=== PATIENT | male | born 1950 | race Caucasian/White ===

== ENCOUNTER 2019-01-15 01:39 | Inpatient (IN) | payer MEDICARE, BC ==
[2019-01-15] MEDS ORDERED: NORMAL SALINE 1000 ML 1,000 ML IV ONE ×2 (02:01→03:16)
--- NOTE | 2019-01-15 02:06 | ER Document Report ---
ED General - General Chief Complaint: Fall Stated Complaint: FALL Time Seen by Provider: 01/15/19 01:51 Primary Care Provider: NAVID QUINTERO PA-C [Primary Care Provider] - Follow up as needed Notes: Patient is a 68-year-old male that comes emergency department by EMS for chief complaint of fall. Patient states that he fell twice today, he states that he has felt bad all day with chills and body aches, is also weaker than usual. He states that he second time he went down he scraped his knees and elbows, he sta jessica he crawled to the phone and called the EMS because he could not get up. He states he has not eaten anything all day. EMS gave him small amount of IV fluids after his systolic blood pressure was found to be 84 on arrival. He denies chest pain, fever, shortness of breath, abdominal pain. He states he felt nauseated earlier but he did not vomit. He denies headache or focal numbness/weakness. Past medical history includes type 2 diabetes, hypertension, and he recently had a prostate biopsy within the past week. He states he has a little bit of hematuria from this but no more than he was told to expect. He states he is also had a little bit of red blood with wiping intermittently but none noted in his stool. He is not on a blood thinner. - Related Data Allergies/Adverse Reactions: No Known Allergies Allergy (Unverified 01/15/19 01:51) Past Medical History - General Information source: Patient - Social History Smoking Status: Never Smoker Drug Abuse: None Lives with: Spouse/Significant other Family History: Reviewed & Not Pertinent Patient has suicidal ideation: No Patient has homicidal ideation: No - Past Medical History Cardiac Medical History: Reports: Hx Hypertension Endocrine Medical History: Reports: Hx Diabetes Mellitus Type 2 Renal/ Medical History: Reports: Hx Benign Prostatic Hyperplasia Musculoskeletal Medical History: Reports Hx Arthritis - Immunizations Immunizations up to date: Yes Hx Diphtheria, Pertussis, Tetanus Vaccination: Yes Review of Systems - Review of Systems Constitutional: No symptoms reported EENT: No symptoms reported Cardiovascular: No symptoms reported Respiratory: No symptoms reported Gastrointestinal: No symptoms reported Genitourinary: No symptoms reported Male Genitourinary: No symptoms reported Musculoskeletal: See HPI Skin: See HPI Hematologic/Lymphatic: No symptoms reported Neurological/Psychological: No symptoms reported Physical Exam - Vital signs Vitals: Resp Pulse Ox 20 98 01/15/19 01:46 01/15/19 01:46 - Notes Notes: GENERAL: Alert, interacts well. Patient is very dirty, there is dirt smeared on his face and over his limbs. HEAD: Normocephalic, atraumatic. EYES: Pupils equal, round, and reactive to light. Extraocular movements intact. ENT: Oral mucosa parched, tongue midline. Oropharynx unremarkable. Airway paten t. NECK: Full range of motion. Supple. Trachea midline. LUNGS: Clear to auscultation bilaterally, no wheezes, rales, or rhonchi. No respiratory distress. No signs of trauma, no tenderness. HEART: Tachycardia, normal rhythm, no murmur ABDOMEN: Soft, non-tender. Non-distended. EXTREMITIES: Moves all 4 extremities spontaneously. Abrasions and bruises to both knees and small abrasions over the tops of the feet. Abrasions to the elbows. Normal capillary refill and sensation, normal strength, normal range of motion of all extremities. There is some tenderness over the left hip area. BACK: No signs of trauma. No cervical, thoracic, lumbar midline tenderness. No saddle anesthesia, normal distal neurovascular exam. Moves all extremities in full range of motion. NEUROLOGICAL: Alert and oriented x3. Normal speech. Cranial nerves II through XII grossly intact. PSYCH: Normal affect, normal mood. SKIN: Warm, dry, normal turgor. No rashes or lesions noted. Course - Re-evaluation Re-evalutation: Patient initially tachycardic, he is very dirty on examination with dirt on his face and extremities, however he has a soft abdomen, clear lungs, no current complaints other than generalized weakness. CBC shows leukocytosis with elevation of neutrophils but no bandemia, nonspecific. Chest x-ray unremarkable, imaging of the extremities unremarkable without fracture. Chemistry shows hypokalemia at 2.3, magnesium pending. CK very elevated at 35,000+, troponin is also elevated at 2.3. Patient given magnesium, potassium. On reevaluation he still denies chest pain or shortness of breath. He denies any current complaints. He has been given 2 L of IV fluid bolus with about 1 hour in between. He states he urinated just prior to arrival and is attempting to give one now. I discussed with Dr. Renee, she recommends ASA and admission to the hospital for additional evaluation and treatment. 01/15/19 05:[address] Kuhn, he does recommend a CT of the chest before we proceed because of his elevated troponin and tachycardia. We are also still pending a urinalysis. Patient still denies chest pain or shortness of breath at this time. 01/15/19 Urinalysis showing some expected hematuria, nonspecific. CT was performed, no pulmonary embolism is seen, incidental thyroid nodules, moderate pericardial fluid, nonspecific otherwise. Patient becomes mildly hypoxic when he falls asleep, he is obese and appears to have sleep apnea, placed on 2 L because of this. Troponin is downtrending now at 1.5. Patient discussed one more time and he still denies dizziness, chest pain, shortness of breath. He did not pass out. I did discuss with Dr. Renee. Discussed with Dr. Arteaga, hospitalist, patient accepted to telemetry full admission. Patient states agreement with plan. - Vital Signs Vital signs: Temp Pulse Resp BP Pulse Ox 99.2 F 120 H 25 H 143/72 H 97 01/15/19 01:51 01/15/19 01:51 01/15/19 07:31 01/15/19 07:31 01/15/19 07:31 - Laboratory Result Diagrams: 01/15/19 02:35 01/15/19 02:35 Laboratory results interpreted by me: 01/15/19 01/15/19 01/15/19 02:35 02:35 02:35 WBC 12.9 H RBC 3.80 L Hgb 11.8 L Hct 34.7 L RDW 14.7 H Seg Neuts % (Manual) 91 H Band Neutrophils % 2 L Lymphocytes % (Manual) 2 L Abs Neuts (Manual) 12.0 H Abs Lymphs (Manual) 0.3 L VBG pCO2 Sodium 135.0 L Potassium 2.8 L* Carbon Dioxide 21 L Est GFR (MDRD) Non-Af 58 L POC Glucose Lactic Acid 2.6 H Calcium 7.7 L AST 719 H Creatine Kinase 18193 H Total Protein 6.2 L Albumin 3.1 L Urine Protein Urine Ketones Urine Blood 01/15/19 01/15/19 01/15/19 02:35 02:38 05:39 WBC RBC Hgb Hct RDW Seg Neuts % (Manual) Band Neutrophils % Lymphocytes % (Manual) Abs Neuts (Manual) Abs Lymphs (Manual) VBG pCO2 34.3 L Sodium Potassium Carbon Dioxide Est GFR (MDRD) Non-Af POC Glucose 120 H Lactic Acid Calcium AST Creatine Kinase Total Protein Albumin Urine Protein 100 H Urine Ketones TRACE H Urine Blood LARGE H - EKG Interpretation by Me Additional EKG results interpreted by me: EKG shows sinus tachycardia at a rate of 115, QTC of 415, normal axis. Low voltage throughout. No overt T wave inversions or ST segment changes in consecutive leads. Discharge - Discharge Clinical Impression: Hypokalemia, Weakness, Tachycardia, Elevated troponin Rhabdomyolysis Qualifiers: Rhabdomyolysis type: non-traumatic Qualified Code(s): M62.82 - Rhabdomyolysis Hypotension Qualifiers: Hypotension type: unspecified hypotension type Qualified Code(s): I95.9 - Hypotension, unspecified Condition: Stable Disposition: ADMITTED INPATIENT Admitting Provider: Dr. Arteaga Unit Admitted: Telemetry Referrals: NAVID QUINTERO PA-C [Primary Care Provider] - Follow up as needed
[2019-01-15 02:47] LABS: VENOUS BLOOD BASE EXCESS -3.5 mmol/L; VENOUS BLOOD HCO3 20.7 mmol/L (20-32); VENOUS BLOOD PCO2 34.3 mmHg (35-63); VENOUS BLOOD PH 7.4 (7.30-7.42)
[2019-01-15 02:51] LABS: HEMATOCRIT 34.7 % (37.9-51.0); HEMOGLOBIN 11.8 g/dL (13.5-17.0); MEAN CORPUSCULAR VOLUME 91 fl (80-97); PLATELET COUNT 210 10^3/uL (150-450); RED CELL DISTRIBUTION WIDTH 14.7 % (11.5-14.0); WHITE BLOOD COUNT 12.9 10^3/uL (4.0-10.5)
[2019-01-15 03:06] LABS: ALBUMIN 3.1 g/dL (3.5-5.0); ALKALINE PHOSPHATASE 89 U/L (38-126); ANION GAP 13 (5-19); ASPARTATE AMINO TRANSFERASE 719 U/L (17-59); BILIRUBIN,DIRECT 0.2 mg/dL (0.0-0.4); BILIRUBIN,TOTAL 1.2 mg/dL (0.2-1.3); BLOOD UREA NITROGEN 15 mg/dL (7-20); CALCIUM 7.7 mg/dL (8.4-10.2); CARBON DIOXIDE 21 mmol/L (22-30); CHLORIDE 101 mmol/L (98-107); GLUCOSE 109 mg/dL (75-110); TOTAL PROTEIN 6.2 g/dL (6.3-8.2)
[2019-01-15 03:12] LABS: ABSOLUTE LYMPHOCYTES# (MANUAL) 0.3 10^3/uL (0.5-4.7); ABSOLUTE MONOCYTES # (MANUAL) 0.6 10^3/uL (0.1-1.4); ANISOCYTOSIS SLIGHT; BAND NEUTROPHILS % (MANUAL) 2 % (3-5); BASOPHILS % (MANUAL) 0 % (0-2); EOSINOPHILS % (MANUAL) 0 % (0-6); LYMPHOCYTES % (MANUAL) 2 % (13-45); MONOCYTES % (MANUAL) 5 % (3-13); SEGMENTED NEUTROPHILS % (MAN) 91 % (42-78); TOTAL CELLS COUNTED 100
[2019-01-15 03:13] LABS: PLATELET COMMENT ADEQUATE
[2019-01-15] MEDS ORDERED: ONDANSETRON HCL INJ/PF 4 MG/2 ML SDV IV ONE (03:17)
--- NOTE | 2019-01-15 03:17 | RADIOLOGY REPORT (SQ) ---
EXAM DESCRIPTION: XR CHEST 1 VIEW COMPLETED DATE/TME: 01/15/2019 02:00 CLINICAL HISTORY: weakness, chills COMPARISON: None. FINDINGS: Single frontal view of the chest. Cardiomediastinal silhouette: Normal size and contour. Lungs: No consolidation, pneumothorax, or pleural effusion. Bones: No acute osseous abnormality. Leads overlie the chest. Upper abdomen: No abnormality identified. IMPRESSION: 1. No acute pulmonary process identified.
--- NOTE | 2019-01-15 03:18 | RADIOLOGY REPORT (SQ) ---
EXAM DESCRIPTION: XR HIP 2 OR MORE VIEWS COMPLETED DATE/TME: 01/15/2019 02:00 CLINICAL HISTORY: 68 years, Male, fall, pain COMPARISON: None. FINDINGS: Single view of the pelvis and lateral view of the left hip. No acute fracture identified. Bilateral hip joint space narrowing and marginal osteophytosis. Degenerative endplate spondylosis of visualized lumbar spine. IMPRESSION: 1. No acute fracture or dislocation. copyright 2010 [employer]- All Rights Reserved
--- NOTE | 2019-01-15 03:19 | RADIOLOGY REPORT (SQ) ---
Bilateral elbows two view on 01/15/2019 at 2:29 AM CLINICAL INDICATION: Bilateral elbow pain after fall COMPARISON: None FINDINGS: Right elbow: There are no fractures. Visualized joints are well aligned. Tiny olecranon spur is noted. No joint effusion to suggest an occult fracture is noted. Left elbow: Small spur formation is noted along the coronoid process of the proximal ulna and also involving the medial distal humeral epicondyle. There are no fractures. Visualized joints are well aligned. No joint effusion to suggest an occult fracture is noted. IMPRESSION: No acute abnormality in either elbow.
[2019-01-15 03:20] LABS: POTASSIUM 2.8 mmol/L (3.6-5.0)
--- NOTE | 2019-01-15 03:20 | RADIOLOGY REPORT (SQ) ---
Bilateral knees two view on 01/15/2019 at 2:21 AM CLINICAL INDICATION: Bilateral knee pain after fall COMPARISON: None FINDINGS: Left knee: Vascular calcifications are noted. No joint effusion is noted. There are no fractures. Visualized joints are well aligned. Right knee: No joint effusion is noted. There are no fractures. Visualized joints are well aligned. No bony abnormality is noted. IMPRESSION: No acute abnormality in either knee.
[2019-01-15] MEDS: POTASSI CL 20 MEQ/50 ML RIDER 20 MEQ/50 ML RTUPB IV SCH ×2 (03:53→05:46)
[2019-01-15] MEDS: MAGNESIUM SULFATE/D5W 1 GM/100 ML RTUPB IV SCH ×2 (03:54→04:54)
[2019-01-15] MEDS ORDERED: ASPIRIN 81 MG TABLET, CHEWABLE PO ONE (03:54)
[2019-01-15 04:04] LABS: CREATINE KINASE 35165 U/L (55-170)
[2019-01-15 06:30] LABS: APPEARANCE,URINE SLIGHTLY-CLOUDY; BILIRUBIN,URINE NEGATIVE (NEGATIVE); GLUCOSE, URINE NEGATIVE (NEGATIVE); KETONES,URINE TRACE mg/dL (NEGATIVE); LEUKOCYTE ESTERASE,URINE NEGATIVE (NEGATIVE); NITRITE,URINE NEGATIVE (NEGATIVE); PROTEIN,URINE 100 mg/dL (NEGATIVE); URINE SPECIFIC GRAVITY 1.009; UROBILINOGEN,URINE NEGATIVE mg/dL (<2.0)
[2019-01-15 06:31] LABS: COLOR,URINE DARK YELLOW
--- NOTE | 2019-01-15 06:45 | RADIOLOGY REPORT (SQ) ---
EXAM DESCRIPTION: CT CHEST ANGIOGRAPHY WITHOUT THEN WITH IV CONTRAST COMPLETED DATE/TME: 01/15/2019 04:58 CLINICAL HISTORY: 68 years Male, tachycardia, elevated troponin. CREAT 1.25 Comparison: CR, same day. Technique: IV contrast. Coronal and sagittal reformat. 3d reconstruction. This exam was performed according to our departmental dose-optimization program, which includes automated exposure control, adjustment of the mA and/or kV according to patient size and/or use of iterative reconstruction technique.[facility]: Dose Right [facility]: CareDose [facility]: Dose Right [facility]: Teradose 4D [facility]: [employer] LIMITATIONS: None Findings: Bilateral thyroid lesions measure 2.7 cm on the right and 2.2 cm on the left, partially imaged. Recommend thyroid ultrasound. Moderate pericardial fluid. Hepatic steatosis. No pulmonary embolus. No right ventricular strain. Clear lungs. Inferior neck, axillae, mediastinum, airway, lymphatics, heart, vasculature, upper abdomen, and musculoskeleton appear otherwise unremarkable. Impression: 1. Bilateral thyroid lesions measure 2.7 cm on the right and 2.2 cm on the left, partially imaged. Recommend thyroid ultrasound. 2. Moderate pericardial fluid. 3. Hepatic steatosis. 4. No pulmonary embolus. Clear lungs.
[2019-01-15] MEDS ORDERED: POTASSIUM CHLORIDE 10 MEQ CAPSULE.ER PO ONE ×2 (08:30→22:00)
[2019-01-15] MEDS ORDERED: ONDANSETRON HCL INJ/PF 4 MG/2 ML SDV IV PRN (09:53)
[2019-01-15] MEDS ORDERED: MAG HYDROX/AL HYDROX/SIMETH SUSP 30 ML UDCUP PO PRN (09:53)
[2019-01-15] MEDS ORDERED: GLUCAGON,HUMAN RECOMB 1 MG INJ IM PRN (10:00)
[2019-01-15] MEDS ORDERED: DEXTROSE 40% GEL 15 GM TUBE PO PRN ×2 (10:00)
[2019-01-15] MEDS ORDERED: DEXTROSE 50%-WATER 25 GM/50 ML DISP.SYRIN IV PRN ×2 (10:00)
[2019-01-15] MEDS ORDERED: DIAZEPAM 5 MG TABLET PO PRN (10:13)
[2019-01-15 10:49] LABS: FREE T4 (FREE THYROXINE) 1.24 ng/dL (0.78-2.19)
--- NOTE | 2019-01-15 10:50 | PDOC H&P ---
History of Present Illness Admission Date/PCP: 01/15/19 07:53 NAVID QUINTERO PA-C Patient complains of: Fall and muscle weakness History of Present Illness: LAUREL IZQUIERDO is a 68 year old male with a history of type 2 diabetes mellitus, hypertension, who was brought in by EMS after experiencing a fall at home. Patient lives with his girlfriend but was at home alone last night when he experienced 2 falls. Both falls occurred when he went to the bathroom and attempted to sit on the toilet bowl. Patient states he fell forward and broke the impact with his hands. He denies any head impact on either location. States that on both occasions, he did not experience any dizziness, lightheadedness or loss of consciousness. It was simply that his legs felt weak as he stooped down so he fell. Patient denies any muscle aches or muscle soreness. Patient states he has been feeling weak for quite some time but it got really bad yesterday. After fall patient was able to crawl to his room and got to the phone and called the ambulance. Patient states when the ambulance arrived they helped him up and put him in the stretcher and at the time his blood pressure was 87/57. He did not take his lisinopril yesterday. Of note patient endorses chronic diarrhea which happens about 4 to 5 days a week but got really bad yesterday and had over 6 bowel movements. He denies any recent antibiotic use in the past several months. Denies abdominal pain, weight loss, heat intolerance, fever or chills. Denies any shortness of breath no chest pain. Past Medical History Cardiac Medical History: Reports: Hypertension Denies: Congestive Heart Failure, Coronary Artery Disease, Myocardial Infarction, Pulmonary Embolism Pulmonary Medical History: Denies: Chronic Obstructive Pulmonary Disease (COPD), Sleep Apnea Endocrine Medical History: Reports: Diabetes Mellitus Type 2 Musculoskeltal Medical History: Reports: Arthritis Past Surgical History Past Surgical History: Reports: Other - Prostate biopsy Social History Lives with: Spouse/Significant other Smoking Status: Former Smoker Cigarettes Packs Per Day: 1 Number of Years Smokin Frequency of Alcohol Use: Rare Hx Recreational Drug Use: No Drugs: None - Advance Directive Resuscitation Status: Full Code Family History Family History: CAD, DM. denies: Thyroid Disfunction Parental Family History Reviewed: Yes Children Family History Reviewed: Yes Sibling(s) Family History Reviewed.: Yes Medication/Allergy Home Medications: Aspirin [Ecotrin 81 mg EC Tablet] 81 mg PO DAILY 01/15/19 Atorvastatin Calcium [Lipitor 20 mg Tablet] 20 mg PO QHS 01/15/19 Diazepam [Valium 5 mg Tablet] 5 mg PO DAILYP PRN 01/15/19 Lisinopril [Prinivil 5 mg Tablet] 5 mg PO DAILY 01/15/19 Metformin HCl [Glucophage] 1,000 mg PO Q12 01/15/19 Paroxetine HCl [Paxil] 10 mg PO DAILY 01/15/19 Allergies/Adverse Reactions: No Known Allergies Allergy (Unverified 01/15/19 01:51) Review of Systems Constitutional: PRESENT: weight gain. ABSENT: chills, fever(s), weight loss Eyes: ABSENT: visual disturbances Ears: PRESENT: other - No new hearing changes but patient is hard of hearing Nose, Mouth, and Throat: ABSENT: headache(s), sore throat, vertigo Cardiovascular: ABSENT: chest pain, dyspnea on exertion, orthropnea Respiratory: ABSENT: cough, dyspnea Gastrointestinal: PRESENT: diarrhea. ABSENT: abdominal pain, nausea, vomiting Genitourinary: ABSENT: dysuria Musculoskeletal: PRESENT: muscle weakness Integumentary: PRESENT: wounds. ABSENT: diaphoresis Neurological: PRESENT: as per HPI. ABSENT: confusion, dizziness Endocrine: ABSENT: heat intolerance Allergic/Immunologic: PRESENT: seasonal rhinorrhea Physical Exam Vital Signs: Temp Pulse Resp BP Pulse Ox 99.2 F 120 H 25 H 143/72 H 97 01/15/19 01:51 01/15/19 01:51 01/15/19 07:31 01/15/19 07:31 01/15/19 07:31 Intake & Output 01/14/19 01/15/19 01/16/19 06:59 06:59 06:59 Intake Total 2247 50 Output Total 400 Balance 1847 50 Weight 128 kg General appearance: PRESENT: no acute distress, cooperative, morbidly obese Head exam: PRESENT: atraumatic Mouth exam: ABSENT: moist Neck exam: ABSENT: JVD Respiratory exam: PRESENT: wheezes - Mild expiratory wheezing Cardiovascular exam: PRESENT: RRR, +S1, +S2. ABSENT: systolic murmur, tachycardia GI/Abdominal exam: PRESENT: hyperactive bowel sounds, soft. ABSENT: firm, rebound, rigid, tenderness Musculoskeletal exam: PRESENT: other - Just mild weakness noted in his muscles.. ABSENT: tenderness Neurological exam: PRESENT: awake, oriented to person, oriented to place, oriented to time, oriented to situation Psychiatric exam: ABSENT: anxious Skin exam: PRESENT: abrasion Results Laboratory Results: 01/15/19 02:35 01/15/19 02:35 01/15/19 01/15/19 01/15/19 02:35 02:35 02:35 WBC 12.9 H RBC 3.80 L Hgb 11.8 L Hct 34.7 L MCV 91 MCH 31.0 MCHC 34.0 RDW 14.7 H Plt Count 210 Seg Neutrophils % Not Reportable VBG pH VBG pCO2 VBG HCO3 VBG Base Excess Sodium 135.0 L Potassium 2.8 L* Chloride 101 Carbon Dioxide 21 L Anion Gap 13 BUN 15 Creatinine 1.25 Est GFR ( Amer) > 60 Glucose 109 Lactic Acid 2.6 H Calcium 7.7 L Magnesium Total Bilirubin 1.2 AST 719 H Alkaline Phosphatase 89 Total Protein 6.2 L Albumin 3.1 L Urine Color Urine Appearance Urine pH Ur Specific Clarence Urine Protein Urine Glucose (UA) Urine Ketones Urine Blood Urine Nitrite Ur Leukocyte Esterase Urine WBC (Auto) Urine RBC (Auto) 01/15/19 01/15/19 01/15/19 02:35 02:35 05:39 WBC RBC Hgb Hct MCV MCH MCHC RDW Plt Count Seg Neutrophils % VBG pH 7.40 VBG pCO2 34.3 L VBG HCO3 20.7 VBG Base Excess -3.5 Sodium Potassium Chloride Carbon Dioxide Anion Gap BUN Creatinine Est GFR ( Amer) Glucose Lactic Acid Calcium Magnesium 1.9 Total Bilirubin AST Alkaline Phosphatase Total Protein Albumin Urine Color DARK YELLOW Urine Appearance SLIGHTLY-CLOUDY Urine pH 6.0 Ur Specific Clarence 1.009 Urine Protein 100 H Urine Glucose (UA) NEGATIVE Urine Ketones TRACE H Urine Blood LARGE H Urine Nitrite NEGATIVE Ur Leukocyte Esterase NEGATIVE Urine WBC (Auto) 19 Urine RBC (Auto) 159 01/15/19 06:42 WBC RBC Hgb Hct MCV MCH MCHC RDW Plt Count Seg Neutrophils % VBG pH VBG pCO2 VBG HCO3 VBG Base Excess Sodium Potassium Chloride Carbon Dioxide Anion Gap BUN Creatinine Est GFR ( Amer) Glucose Lactic Acid 0.9 Calcium Magnesium Total Bilirubin AST Alkaline Phosphatase Total Protein Albumin Urine Color Urine Appearance Urine pH Ur Specific Clarence Urine Protein Urine Glucose (UA) Urine Ketones Urine Blood Urine Nitrite Ur Leukocyte Esterase Urine WBC (Auto) Urine RBC (Auto) 01/15/19 01/15/19 01/15/19 02:35 02:35 06:14 Creatine Kinase 90046 H Troponin I 2.320 1.530 Impressions: Chest X-Ray 01/15/19 02:00 IMPRESSION: 1. No acute pulmonary process identified. Elbow X-Ray 01/15/19 02:00 IMPRESSION: No acute abnormality in either elbow. Hip X-Ray 01/15/19 02:00 IMPRESSION: 1. No acute fracture or dislocation. copyright 2010 [employer]- All Rights Reserved Knee X-Ray 01/15/19 02:00 IMPRESSION: No acute abnormality in either knee. Assessment and Plan - Diagnosis (1) Rhabdomyolysis Qualifiers: Rhabdomyolysis type: non-traumatic Qualified Code(s): M62.82 - Rhabdomyolysis Is this a current diagnosis for this admission?: Yes Plan: 01/15/19: Patient is experiencing hypokalemia induced severe rhabdomyolysis. It is fair to say that this is likely not statin induced given the expectation that his potassium would have otherwise been high from muscle cell breakdown. However, I will hold statin for now as this would worsen rhabdomyolysis. Doubt inflammatory myopathy given lack of tenderness and low K levels but will check ESR. Aggressive IV fluid hydration. Monitor I's and O's and renal function Elevated troponin is secondary to rhabdomyolysis. No need to trend any further. Trend CK (2) Hypokalemia due to excessive gastrointestinal loss of potassium Is this a current diagnosis for this admission?: Yes Plan: Severe hypokalemia of 2.8. Will replete aggressively. Monitor on telemetry for now. (3) Diarrhea Qualifiers: Diarrhea type: unspecified type Qualified Code(s): R19.7 - Diarrhea, unspecified Is this a current diagnosis for this admission?: Yes Plan: 01/15/19: Patient endorses chronic diarrhea for past several months but worsened yesterday. Check C. difficile. Check thyroid function given thyroid lesion seen on CTA. Start on Imodium if C. difficile negative. (4) Pericardial effusion without cardiac tamponade Is this a current diagnosis for this admission?: Yes Plan: 01/15/2019: CTA chest done in ER showed moderate pericardial effusion. Will check echo to confirm true amount. (5) Weakness Is this a current diagnosis for this admission?: Yes Plan: Secondary to rhabdomyolysis. Physical therapy. (6) Thyroid lesion Is this a current diagnosis for this admission?: Yes Plan: Bilateral lesions seen on thyroid on CTA chest. Will check thyroid function Thyroid ultrasound can be done outpatient. (7) Wheezing on auscultation Is this a current diagnosis for this admission?: Yes Plan: Mild wheezing in both lungs but patient looks very comfortable despite mild tachypnea (he states he is breathing completely normal as he usually does and not dyspneic at all). Patient denies history of COPD but has a [id number] smoking history. Will place on nebulizers. Outpatient PFT. - Time Time Spent with patient: 35 or more minutes Medications reviewed and adjusted accordingly: Yes
[2019-01-15 11:03] LABS: THYROID STIMULATING HORMONE 1.7 uIU/mL (0.47-4.68)
[2019-01-15] MEDS: LISINOPRIL 5 MG TABLET PO SCH (11:29)
[2019-01-15] MEDS: INSULIN LISPRO 100 UNIT/ML 3 ML VIAL SUBCUT SCH ×3 (11:29→21:15)
[2019-01-15] MEDS: PAROXETINE HCL 20 MG TABLET PO SCH (11:29)
[2019-01-15] MEDS: IPRATROPIUM/ALBUTEROL 0.5-2.5 MG/3 ML AMPUL NEB SCH ×2 (11:29→20:21)
[2019-01-15 13:04] LABS: ANION GAP 13 (5-19); BLOOD UREA NITROGEN 16 mg/dL (7-20); CALCIUM 7.9 mg/dL (8.4-10.2); CARBON DIOXIDE 18 mmol/L (22-30); CHLORIDE 109 mmol/L (98-107); GLUCOSE 83 mg/dL (75-110); POTASSIUM 3.3 mmol/L (3.6-5.0)
[2019-01-15] MEDS: HEPARIN SOD (PORCINE) 5,000 UNIT/ML 1 ML VIAL SUBCUT SCH ×2 (16:31→21:15)
[2019-01-15] MEDS: NORMAL SALINE 1000 ML 1,000 ML IV PRN ×2 (16:34→23:29)
[2019-01-15 20:17] LABS: C DIFFICILE GDH NEGATIVE (NEGATIVE)
[2019-01-15] MEDS: FLUTICASONE NASAL SPRAY 50 MCG/SPRY 120 SPRAY/16 GM NASL SCH (21:18)
[2019-01-15] MEDS ORDERED: ATORVASTATIN CALCIUM 20 MG TABLET PO SCH (22:00)
[2019-01-15] MEDS: ACETAMINOPHEN 325 MG TABLET PO PRN (22:56)
--- NOTE | 2019-01-15 23:25 | EKG REPORT ---
SEVERITY:- BORDERLINE ECG - SINUS TACHYCARDIA LOW VOLTAGE THROUGHOUT BORDERLINE R WAVE PROGRESSION, ANTERIOR LEADS : Confirmed by: Edie Julian 15-Jan-2019 23:25:00
[2019-01-16] MEDS: NORMAL SALINE 1000 ML 1,000 ML IV PRN ×4 (04:40→23:24)
[2019-01-16 04:44] LABS: ABSOLUTE LYMPHOCYTES (AUTO) 0.7 10^3/uL (0.5-4.7); ABSOLUTE MONOCYTES (AUTO) 0.6 10^3/uL (0.1-1.4); ABSOLUTE NEUT (AUTO) 6.6 10^3/uL (1.7-8.2); BASOPHILS % (AUTO) 0.6 % (0-2); EOSINOPHILS % (AUTO) 0.3 % (0-6); HEMATOCRIT 33.7 % (37.9-51.0); HEMOGLOBIN 11.5 g/dL (13.5-17.0); LYMPHOCYTES % (AUTO) 8.3 % (13-45); MEAN CORPUSCULAR HEMOGLOBIN 31.2 pg (27.0-33.4); MEAN CORPUSCULAR HGB CONC 34.2 g/dL (32.0-36.0); MEAN CORPUSCULAR VOLUME 91 fl (80-97); MONOCYTES % (AUTO) 7.6 % (3-13); PLATELET COUNT 185 10^3/uL (150-450); RED CELL DISTRIBUTION WIDTH 14.9 % (11.5-14.0); SEGMENTED NEUTROPHILS % (AUTO) 83.2 % (42-78); TOTAL CELLS COUNTED % (AUTO) 100 %
[2019-01-16 05:12] LABS: ALBUMIN 2.9 g/dL (3.5-5.0); ALKALINE PHOSPHATASE 76 U/L (38-126); ANION GAP 11 (5-19); BILIRUBIN,DIRECT 0.3 mg/dL (0.0-0.4); BILIRUBIN,TOTAL 0.7 mg/dL (0.2-1.3); BLOOD UREA NITROGEN 16 mg/dL (7-20); CALCIUM 7.6 mg/dL (8.4-10.2); CARBON DIOXIDE 19 mmol/L (22-30); CHLORIDE 109 mmol/L (98-107); GLUCOSE 83 mg/dL (75-110); POTASSIUM 3.3 mmol/L (3.6-5.0); TOTAL PROTEIN 5.8 g/dL (6.3-8.2)
[2019-01-16 05:30] LABS: CREATINE KINASE 17772 U/L (55-170)
[2019-01-16 05:31] LABS: ASPARTATE AMINO TRANSFERASE 759 U/L (17-59); C-REACTIVE PROTEIN 168.6 mg/L (<10.0)
[2019-01-16] MEDS: HEPARIN SOD (PORCINE) 5,000 UNIT/ML 1 ML VIAL SUBCUT SCH ×3 (05:39→21:45)
[2019-01-16] MEDS: INSULIN LISPRO 100 UNIT/ML 3 ML VIAL SUBCUT SCH ×4 (07:41→21:44)
[2019-01-16] MEDS: IPRATROPIUM/ALBUTEROL 0.5-2.5 MG/3 ML AMPUL NEB SCH ×2 (08:00→19:57)
[2019-01-16] MEDS: ACETAMINOPHEN 325 MG TABLET PO PRN ×2 (08:17→19:36)
[2019-01-16] MEDS ORDERED: POTASSIUM CHLORIDE 10 MEQ CAPSULE.ER PO ONE (08:30)
[2019-01-16] MEDS ORDERED: LOPERAMIDE HCL 2 MG CAPSULE PO PRN (09:05)
--- NOTE | 2019-01-16 09:35 | PDOC PROGRESS REPORT ---
Subjective Progress Note for:: 01/16/19 Subjective:: Patient states that he is breathing is normal and would like to stop using the nebulizers because he is breathing the same way he is always breathes. He also expresses eagerness to return to work and be discharged. However he is willing to wait if medically required. Patient still has some weakness in his lower extremities but is able to ambulate. He endorses some tightness and soreness in his upper thighs bilaterally but no knee his upper extremities. Reason For Visit: RHABDOMYOLYSIS INDUCED BY SEVERE HYPOKALEMIA Physical Exam Vital Signs: Temp Pulse Resp BP Pulse Ox 97.5 F 106 H 20 138/64 H 97 01/16/19 08:15 01/16/19 08:15 01/16/19 08:15 01/16/19 08:15 01/16/19 08:15 Intake & Output 01/15/19 01/16/19 01/17/19 06:59 06:59 06:59 Intake Total 2247 2890 627 Output Total 400 1825 Balance 1847 1065 627 Weight 128 kg 115.9 kg General appearance: PRESENT: no acute distress, cooperative Eye exam: PRESENT: EOMI Mouth exam: PRESENT: moist Neck exam: ABSENT: JVD Respiratory exam: PRESENT: clear to auscultation leena, tachypnea - Mildly tachypneic but states that that is the way he normally breathes for most of his life, unlabored. ABSENT: wheezes Cardiovascular exam: PRESENT: RRR, +S1, +S2. ABSENT: systolic murmur, tachycardia GI/Abdominal exam: PRESENT: normal bowel sounds, soft. ABSENT: guarding, rigid, tenderness Musculoskeletal exam: PRESENT: ambulatory, full ROM - Full range of motion in both upper extremities but limited flexion at the hip bilaterally, normal inspection, tenderness - Mild tenderness in upper thighs bilaterally Neurological exam: PRESENT: alert, awake, oriented to person, oriented to place, oriented to time, oriented to situation Results Laboratory Results: 01/16/19 03:53 01/16/19 03:53 01/15/19 01/15/19 01/16/19 02:35 12:35 03:53 WBC 8.0 RBC 3.70 L Hgb 11.5 L Hct 33.7 L MCV 91 MCH 31.2 MCHC 34.2 RDW 14.9 H Plt Count 185 Seg Neutrophils % 83.2 H Sodium 139.9 Potassium 3.3 L Chloride 109 H Carbon Dioxide 18 L Anion Gap 13 BUN 16 Creatinine 1.05 Est GFR ( Amer) > 60 Glucose 83 Calcium 7.9 L Phosphorus Magnesium Total Bilirubin AST Alkaline Phosphatase C-Reactive Protein Total Protein Albumin TSH 1.70 Free T4 1.24 01/16/19 03:53 WBC RBC Hgb Hct MCV MCH MCHC RDW Plt Count Seg Neutrophils % Sodium 139.1 Potassium 3.3 L Chloride 109 H Carbon Dioxide 19 L Anion Gap 11 BUN 16 Creatinine 0.88 Est GFR ( Amer) > 60 Glucose 83 Calcium 7.6 L Phosphorus 3.0 Magnesium 2.4 H Total Bilirubin 0.7 AST 759 H Alkaline Phosphatase 76 C-Reactive Protein 168.6 H Total Protein 5.8 L Albumin 2.9 L TSH Free T4 01/15/19 01/15/19 01/15/19 02:35 02:35 06:14 Creatine Kinase 74574 H Troponin I 2.320 1.530 01/15/19 01/16/19 12:35 03:53 Creatine Kinase 44254 H 17148 H Troponin I Impressions: Chest X-Ray 01/15/19 02:00 IMPRESSION: 1. No acute pulmonary process identified. Elbow X-Ray 01/15/19 02:00 IMPRESSION: No acute abnormality in either elbow. Hip X-Ray 01/15/19 02:00 IMPRESSION: 1. No acute fracture or dislocation. copyright 2010 [employer]- All Rights Reserved Knee X-Ray 01/15/19 02:00 IMPRESSION: No acute abnormality in either knee. Assessment and Plan - Diagnosis (1) Rhabdomyolysis Qualifiers: Qualified Code(s): M62.82 - Rhabdomyolysis Is this a current diagnosis for this admission?: Yes Plan: My initial suspicion as to the etiology of this was hypokalemia induced rhabdomyolysis secondary to chronic diarrhea and potential contribution from trauma after his 2 falls. I doubt this was statin induced especially with his potassium being so low on admission. However with his mildly elevated corrected ESR and significantly elevated CRP levels, combined with tenderness and weakness in both thighs, it is possible that an inflammatory myopathy could be playing a role here. And so I recommend the patient have an EMG performed after discharge for further analysis to see if muscle biopsy is indicated. Elevated troponin is secondary to rhabdomyolysis. No need to trend any further. In the meantime, we will continue with aggressive IV fluids, monitor renal function and trend CK. (2) Hypokalemia due to excessive gastrointestinal loss of potassium Is this a current diagnosis for this admission?: Yes Plan: Severe hypokalemia of 2.8 on admission. Improved with repletion. (3) Diarrhea Qualifiers: Diarrhea type: unspecified type Qualified Code(s): R19.7 - Diarrhea, unspecified Is this a current diagnosis for this admission?: Yes Plan: Patient endorses chronic diarrhea for past several months. C. difficile is negative. Thyroid function test normal. Start on Imodium. (4) Pericardial effusion without cardiac tamponade Is this a current diagnosis for this admission?: Yes Plan: CTA chest done in ER showed moderate pericardial effusion. However CT scans typically tend to overestimate the amount of pericardial fluid so I will check echo to confirm true amount. (5) Weakness Is this a current diagnosis for this admission?: Yes Plan: Secondary to rhabdomyolysis. Physical therapy. (6) Thyroid lesion Is this a current diagnosis for this admission?: Yes Plan: Bilateral lesions seen on thyroid on CTA chest. Thyroid function test is normal. Thyroid ultrasound can be done outpatient. (7) Wheezing on auscultation Is this a current diagnosis for this admission?: Yes Plan: Resolved. Nebs as needed. - Time Time Spent with patient: 15-24 minutes
[2019-01-16] MEDS: LISINOPRIL 5 MG TABLET PO SCH (09:37)
[2019-01-16] MEDS: ASPIRIN 81 MG TABLET, ENT COATED PO SCH (09:38)
[2019-01-16] MEDS: PAROXETINE HCL 20 MG TABLET PO SCH (09:38)
[2019-01-16] MEDS: FLUTICASONE NASAL SPRAY 50 MCG/SPRY 120 SPRAY/16 GM NASL SCH ×2 (09:42→21:43)
[2019-01-17] MEDS: ACETAMINOPHEN 325 MG TABLET PO PRN ×2 (01:58→10:30)
[2019-01-17] MEDS: HEPARIN SOD (PORCINE) 5,000 UNIT/ML 1 ML VIAL SUBCUT SCH (06:02)
[2019-01-17] MEDS: NORMAL SALINE 1000 ML 1,000 ML IV PRN (06:03)
[2019-01-17 06:25] LABS: ANION GAP 9 (5-19); BLOOD UREA NITROGEN 11 mg/dL (7-20); CALCIUM 7.7 mg/dL (8.4-10.2); CARBON DIOXIDE 19 mmol/L (22-30); CHLORIDE 111 mmol/L (98-107); GLUCOSE 106 mg/dL (75-110); POTASSIUM 3.5 mmol/L (3.6-5.0)
[2019-01-17 06:48] LABS: CREATINE KINASE 7356 U/L (55-170)
[2019-01-17] MEDS: IPRATROPIUM/ALBUTEROL 0.5-2.5 MG/3 ML AMPUL NEB SCH (08:08)
[2019-01-17] MEDS: INSULIN LISPRO 100 UNIT/ML 3 ML VIAL SUBCUT SCH ×2 (08:36→12:00)
[2019-01-17] MEDS: LISINOPRIL 5 MG TABLET PO SCH (10:28)
[2019-01-17] MEDS: PAROXETINE HCL 20 MG TABLET PO SCH (10:29)
[2019-01-17] MEDS: ASPIRIN 81 MG TABLET, ENT COATED PO SCH (10:29)
[2019-01-17] MEDS: FLUTICASONE NASAL SPRAY 50 MCG/SPRY 120 SPRAY/16 GM NASL SCH (10:30)
[2019-01-17 13:52] VITALS: BP 139/63
--- NOTE | 2019-01-17 15:45 | PDOC DISCHARGE SUMMARY ---
Impression - Admit/DC Date/PCP Admission Date/Primary Care Provider: 01/15/19 07:53 NAVID QUINTERO PA-C Discharge Date: 01/17/19 - Discharge Diagnosis (1) Elevated troponin Is this a current diagnosis for this admission?: Yes (2) Hypokalemia Is this a current diagnosis for this admission?: Yes (3) Pericardial effusion without cardiac tamponade Is this a current diagnosis for this admission?: Yes (4) Rhabdomyolysis Is this a current diagnosis for this admission?: Yes (5) Thyroid lesion Is this a current diagnosis for this admission?: Yes (6) Weakness Is this a current diagnosis for this admission?: Yes - Assessment Summary: 68-year-old male who was admitted on 01/15/2019 for fall and muscle weakness.. Patient was brought to the emergency room by EMS after falling at home. Patient states that his legs felt weak when he stooped down so he fell. Patient states that when EMS arrived his blood pressure was 87/57 denies taking his lisinopril that day. Patient does state however that he had had multiple bouts of diarrhea recently. Patient arrived his potassium was 2.8 at the time of discharge it is gone up to 3.5. It is felt as though patient may have fallen and been weak secondary to hypokalemia. Patient's troponins were also elevated first one was 2.3-second one was 1.5. States he has had a recent stress test that showed no cardiac di sease. CK was also elevated on arrival 35,000 and at the time of discharge 7300 Patient was admitted for rhabdomyolysis, hypokalemia, diarrhea, pericardial effusion without cardiac tamponade, thyroid lesions that was seen incidentally on CT of the chest. Patient improved quickly with IV fluids and replacement potassium. Patient had no chest pain throughout his entire hospitalization. Patient will have the thyroid lesions worked up as an outpatient. We will see his primary care provider next 7 to 10 days for follow-up on his pericardial effusion. Patient will have his potassium level checked also. At the time of discharge his echocardiogram had not been read but patient was insisting to go home so he could return to work. Patient was told it would be best if he stayed until we got this report. Patient will resume his home medications at time of discharge. Patient does have a primary care provider that we will see him within the next 7 to 10 days. Patinet will return to the emergency room for any worsening or recurrence of his symptoms. - Additional Information Resuscitation Status: Full Code Discharge Diet: Diabetic Discharge Activity: Balance Activity w/Rest Referrals: TAMMY VELAZQUEZ MD [[employer]ITY BASED STAFF] - (L/M AT OFFICE) Home Medications: Aspirin [Ecotrin 81 mg EC Tablet] 81 mg PO DAILY 01/15/19 Atorvastatin Calcium [Lipitor 20 mg Tablet] 20 mg PO QHS 01/15/19 Diazepam [Valium 5 mg Tablet] 5 mg PO DAILYP PRN 01/15/19 Lisinopril [Prinivil 5 mg Tablet] 5 mg PO DAILY 01/15/19 Metformin HCl [Glucophage] 1,000 mg PO Q12 01/15/19 Paroxetine HCl [Paxil] 10 mg PO DAILY 01/15/19 Paroxetine HCl [Paxil 20 mg Tablet] 10 mg PO DAILY tablet 01/17/19 History of Present Illiness History of Present Illness: LAUREL IZQUIERDO is a 68 year old male Physical Exam Vital Signs: Temp Pulse Resp BP Pulse Ox 98.3 F 101 H 18 140/68 H 99 01/17/19 13:49 01/17/19 13:49 01/17/19 13:49 01/17/19 13:49 01/17/19 13:49 Intake & Output 01/16/19 01/17/19 01/18/19 06:59 06:59 06:59 Intake Total 2890 4557 1000 Output Total 1825 2850 Balance 1065 1707 1000 Weight 115.9 kg 118.5 kg Results Laboratory Results: WBC 8.0 10^3/uL (4.0-10.5) 01/16/19 03:53 RBC 3.70 10^6/uL (4.35-5.55) L 01/16/19 03:53 Hgb 11.5 g/dL (13.5-17.0) L 01/16/19 03:53 Hct 33.7 % (37.9-51.0) L 01/16/19 03:53 MCV 91 fl (80-97) 01/16/19 03:53 MCH 31.2 pg (27.0-33.4) 01/16/19 03:53 MCHC 34.2 g/dL (32.0-36.0) 01/16/19 03:53 RDW 14.9 % (11.5-14.0) H 01/16/19 03:53 Plt Count 185 10^3/uL (150-450) 01/16/19 03:53 Lymph % (Auto) 8.3 % (13-45) L 01/16/19 03:53 [place] % (Auto) 7.6 % (3-13) 01/16/19 03:53 Eos % (Auto) 0.3 % (0-6) 01/16/19 03:53 Baso % (Auto) 0.6 % (0-2) 01/16/19 03:53 Absolute Neuts (auto) 6.6 10^3/uL (1.7-8.2) 01/16/19 03:53 Absolute Lymphs (auto) 0.7 10^3/uL (0.5-4.7) 01/16/19 03:53 Absolute Monos (auto) 0.6 10^3/uL (0.1-1.4) 01/16/19 03:53 Absolute Eos (auto) 0.0 10^3/uL (0.0-0.6) 01/16/19 03:53 Absolute Basos (auto) 0.0 10^3/uL (0.0-0.2) 01/16/19 03:53 Total Counted 100 01/15/19 02:35 Seg Neutrophils % 83.2 % (42-78) H 01/16/19 03:53 Seg Neuts % (Manual) 91 % (42-78) H 01/15/19 02:35 Band Neutrophils % 2 % (3-5) L 01/15/19 02:35 Lymphocytes % (Manual) 2 % (13-45) L 01/15/19 02:35 Monocytes % (Manual) 5 % (3-13) 01/15/19 02:35 Eosinophils % (Manual) 0 % (0-6) 01/15/19 02:35 Basophils % (Manual) 0 % (0-2) 01/15/19 02:35 Abs Neuts (Manual) 12.0 10^3/uL (1.7-8.2) H 01/15/19 02:35 Abs Lymphs (Manual) 0.3 10^3/uL (0.5-4.7) L 01/15/19 02:35 Abs Monocytes (Manual) 0.6 10^3/uL (0.1-1.4) 01/15/19 02:35 Absolute Eos (Manual) 0.0 10^3/uL (0.0-0.6) 01/15/19 02:35 Abs Basophils (Manual) 0.0 10^3/uL (0.0-0.2) 01/15/19 02:35 Platelet Comment ADEQUATE 01/15/19 02:35 Anisocytosis SLIGHT 01/15/19 02:35 ESR 45 mm/hr (0-20) H 01/15/19 12:35 VBG pH 7.40 (7.30-7.42) 01/15/19 02:35 VBG pCO2 34.3 mmHg (35-63) L 01/15/19 02:35 VBG HCO3 20.7 mmol/L (20-32) 01/15/19 02:35 VBG Base Excess -3.5 mmol/L 01/15/19 02:35 Sodium 139.1 mmol/L (137-145) 01/17/19 04:20 Potassium 3.5 mmol/L (3.6-5.0) L 01/17/19 04:20 Chloride 111 mmol/L (98-107) H 01/17/19 04:20 Carbon Dioxide 19 mmol/L (22-30) L 01/17/19 04:20 Anion Gap 9 (5-19) 01/17/19 04:20 BUN 11 mg/dL (7-20) 01/17/19 04:20 Creatinine 0.80 mg/dL (0.52-1.25) 01/17/19 04:20 Est GFR ( Amer) > 60 (>60) 01/17/19 04:20 Est GFR (MDRD) Non-Af > 60 (>60) 01/17/19 04:20 Glucose 106 mg/dL (75-110) 01/17/19 04:20 POC Glucose 127 mg/dL (70-110) H 01/17/19 11:55 Lactic Acid 0.9 mmol/L (0.7-2.1) 01/15/19 06:42 Calcium 7.7 mg/dL (8.4-10.2) L 01/17/19 04:20 Phosphorus 3.0 mg/dL (2.5-4.5) 01/16/19 03:53 Magnesium 2.2 mg/dL (1.6-2.3) 01/17/19 04:20 Total Bilirubin 0.7 mg/dL (0.2-1.3) 01/16/19 03:53 Direct Bilirubin 0.3 mg/dL (0.0-0.4) 01/16/19 03:53 Neonat Total Bilirubin Not Reportable 01/16/19 03:53 Neonat Direct Bilirubin Not Reportable 01/16/19 03:53 Neonat Indirect Bili Not Reportable 01/16/19 03:53 AST 759 U/L (17-59) H 01/16/19 03:53 ALT 151 U/L (<50) 01/16/19 03:53 Alkaline Phosphatase 76 U/L (38-126) 01/16/19 03:53 Creatine Kinase 7356 U/L (55-170) H 01/17/19 04:20 Troponin I 1.530 ng/mL 01/15/19 06:14 C-Reactive Protein 168.6 mg/L (<10.0) H 01/16/19 03:53 Total Protein 5.8 g/dL (6.3-8.2) L 01/16/19 03:53 Albumin 2.9 g/dL (3.5-5.0) L 01/16/19 03:53 TSH 1.70 uIU/mL (0.47-4.68) 01/15/19 02:35 Free T4 1.24 ng/dL (0.78-2.19) 01/15/19 02:35 Urine Color DARK YELLOW 01/15/19 05:39 Urine Appearance SLIGHTLY-CLOUDY 01/15/19 05:39 Urine pH 6.0 (5.0-9.0) 01/15/19 05:39 Ur Specific [place] 1.009 01/15/19 05:39 Urine Protein 100 mg/dL (NEGATIVE) H 01/15/19 05:39 Urine Glucose (UA) NEGATIVE mg/dL (NEGATIVE) 01/15/19 05:39 Urine Ketones TRACE mg/dL (NEGATIVE) H 01/15/19 05:39 Urine Blood LARGE (NEGATIVE) H 01/15/19 05:39 Urine Nitrite NEGATIVE (NEGATIVE) 01/15/19 05:39 Urine Bilirubin NEGATIVE (NEGATIVE) 01/15/19 05:39 Urine Urobilinogen NEGATIVE mg/dL (<2.0) 01/15/19 05:39 Ur Leukocyte Esterase NEGATIVE (NEGATIVE) 01/15/19 05:39 Urine WBC (Auto) 19 /HPF 01/15/19 05:39 Urine RBC (Auto) 159 /HPF 01/15/19 05:39 Urine Bacteria (Auto) TRACE /HPF 01/15/19 05:39 Granular Casts (Auto) 11 /LPF 01/15/19 05:39 WBC Casts (Auto) 1 /LPF 01/15/19 05:39 Urine Ascorbic Acid NEGATIVE (NEGATIVE) 01/15/19 05:39 Stl C. Difficile GDH Ag NEGATIVE (NEGATIVE) 01/15/19 17:38 Stl C.difficile Tox A&B NEGATIVE (NEGATIVE) 01/15/19 17:38 Serum Alcohol < 10 mg/dL (NONE DETECTED) 01/15/19 02:35 01/15/19 01/15/19 02:35 06:14 Troponin I 2.320 1.530 Impressions: Chest X-Ray 01/15/19 02:00 IMPRESSION: 1. No acute pulmonary process identified. Elbow X-Ray 01/15/19 02:00 IMPRESSION: No acute abnormality in either elbow. Hip X-Ray 01/15/19 02:00 IMPRESSION: 1. No acute fracture or dislocation. copyright 2010 [employer]- All Rights Reserved Knee X-Ray 01/15/19 02:00 IMPRESSION: No acute abnormality in either knee. Stroke Is this a Stroke Patient?: No Acute Heart Failure - Is this a Heart Failure Patient?: No
--- NOTE | 2019-01-18 11:49 | XCELERA REPORT ---
[address] [id number] Transthoracic Echocardiogram Report Name: LAUREL IZQUIERDO Age: 68 yrs Gender: Male : 1950 Patient Status: Inpatient Patient Location: [address] [place], [place] [id number] Study Date: 01/16/2019 09:47 AM Height: 71 in Weight: 282 lb BSA: 2.4 m2 Procedure: A two-dimensional transthoracic echocardiogram with color flow and Doppler was performed. Study Quality: Technically suboptimal. Reason For Study: moderate pericardial effusion on CT History: moderate pericardial effusion on CT. Ordering Physician: MERLYN PRINCE Performed By: Lior Mejia Interpretation Summary The left ventricle is grossly normal size. There is normal left ventricular wall thickness. LV EF is 60% Doppler measurements suggest normal left ventricular diastolic function Probably no regional wall motion abnormality. There is no thrombus. No ASD ,VSD , or PFO seen. The right ventricle is grossly normal size. The right atrium is normal. The left atrium is mildly dilated. There is no evidence of mitral valve prolapse. There is no vegetation seen on the mitral valve. There is no mitral valve stenosis. There is a trace amount of mitral regurgitation There is no aortic valvular vegetation. There is no aortic valve stenosis There is no LVOT obstruction. No aortic regurgitation is present. There is no tricuspid stenosis. There is a trace amount of tricuspid regurgitation Right ventricular systolic pressure is at the upper limits of normal RVSP is 25 to 30 mm of Hg , with RA mean of 5 to 10. There is no pulmonic valvular stenosis. There is no pulmonic valvular regurgitation. The inferior vena cava appeared normal and decreased > 50% with respiration (RAP 5-10 mmHg) Small pericardial effusion. There are no echocardiographic or Doppler indications for cardiac tamponade MMode/2D Measurements & Calculations RVDd: 3.8 cm LVIDd: 5.4 cm FS: 33.8 % Ao root diam: 3.2 cm IVSd: 0.88 cm LVIDs: 3.6 cm EDV(Teich): 139.7 ml Ao root area: 8.1 cm2 LVPWd: 1.1 cm ESV(Teich): 53.0 ml LA dimension: 4.6 cm EF(Teich): 62.1 % Doppler Measurements & Calculations MV E max gerald: MV P1/2t max gerald: Ao V2 max: LV V1 max P.9 cm/sec 103.8 cm/sec 97.7 cm/sec 3.9 mmHg MV A max gerald: MV P1/2t: 52.6 msec Ao max P.8 mmHgLV V1 max: 97.7 cm/sec MVA(P1/2t): 4.2 cm2 98.7 cm/sec MV E/A: 1.3 MV dec slope: 578.1 cm/sec2 MV dec time: 0.13 sec PA V2 max: TR max gerald: MV P1/2t-pr_phl: 100.7 cm/sec 228.0 cm/sec 52.6 msec PA max P.1 mmHg TR max P.8 mmHg Left Ventricle The left ventricle is grossly normal size. There is normal left ventricular wall thickness. LV EF is 60%. Left ventricular systolic function is normal. Doppler measurements suggest normal left ventricular diastolic function. Probably no regional wall motion abnormality. There is no thrombus. No ASD ,VSD , or PFO seen. Right Ventricle The right ventricle is not well visualized secondary to technical limitations. The right ventricle is grossly normal size. Atria The right atrium is normal. The left atrium is mildly dilated. Mitral Valve There is no evidence of mitral valve prolapse. There is no vegetation seen on the mitral valve. There is no mitral valve stenosis. There is a trace amount of mitral regurgitation. Aortic Valve There is no aortic valvular vegetation. There is no aortic valve stenosis. There is no LVOT obstruction. No aortic regurgitation is present. Tricuspid Valve There is no tricuspid stenosis. There is a trace amount of tricuspid regurgitation. Right ventricular systolic pressure is at the upper limits of normal. RVSP is 25 to 30 mm of Hg , with RA mean of 5 to 10. Pulmonic Valve There is no pulmonic valvular stenosis. There is no pulmonic valvular regurgitation. Great Vessels The aortic root is not well visualized but is probably normal size. The inferior vena cava appeared normal and decreased > 50% with respiration (RAP 5-10 mmHg). Effusions Small pericardial effusion. There are no echocardiographic or Doppler indications for cardiac tamponade. : MERLYN PRINCE Lakshmi
== END 2019-01-17 14:23 | disposition home or self-care (01) | DRG 558 ==
LOC: ER 01:39 → EH 07:53 → 4N 15:50
PROVIDERS: ADMIT Internal Medicine; ATTEND Internal Medicine
DX: M62.82 Rhabdomyolysis (principal); I31.3 Pericardial effusion (noninflammatory); E87.6 Hypokalemia; I95.9 Hypotension, unspecified; R79.89 Other specified abnormal findings of blood chemistry; E11.9 Type 2 diabetes mellitus without complications; I10 Essential (primary) hypertension; R94.6 Abnormal results of thyroid function studies; R19.7 Diarrhea, unspecified; N40.0 Benign prostatic hyperplasia without lower urinary tract symptoms; R06.82 Tachypnea, not elsewhere classified; M19.90 Unspecified osteoarthritis, unspecified site; Z87.891 Personal history of nicotine dependence; Z82.49 Family history of ischemic heart disease and other diseases of the circulatory system; Z83.3 Family history of diabetes mellitus; Z79.84 Long term (current) use of oral hypoglycemic drugs; Z79.82 Long term (current) use of aspirin; Z79.899 Other long term (current) drug therapy; Z91.81 History of falling
CPT/HCPCS: 36415; 71045; 71275; 80048; 80053; 80307; 81001; 82550; 82803; 82962; 83605; 83735; 84100; 84439; 84443; 84484; 85025; 85652; 86140; 87040; 87324; 87449; 93005; 93010; 93306; 94640; 96361; 96365; 96366; 96368; 96375; 99285; J1644; J1815; J2405; J3475; J3480; J7030; J7620